=== PATIENT | female | born 1980 | race Two or more races ===

== ENCOUNTER 2023-07-28 08:19 | Emergency (ER) | payer OTHER ==
[~2023-07-28] VITALS: Ht 154.9 cm; Wt 113.4 kg
[~2023-07-28 08:19] MED LIST: AVALIDE 150-12.1 TA1 PO; KETO10TA2 PO; ORPH100T PO; ULTRACET PO
== END 2023-07-28 09:50 | disposition home or self-care (01) ==
LOC: ER 08:19
DX: N76.4 Abscess of vulva (principal)

== ENCOUNTER 2025-05-30 07:41 | Outpatient (CLI) | payer OTHER | END 2025-05-30 07:42 | disposition home or self-care (01) | LOC: SONOGRAMA 07:41 | PROVIDERS: ATTEND Pathology Anatomic Pathology & Clinical Pathology | DX: D34 Benign neoplasm of thyroid gland (principal); E07.89 Other specified disorders of thyroid; E04.2 Nontoxic multinodular goiter ==

== ENCOUNTER 2025-06-01 08:25 | Outpatient (CLI) | payer OTHER | END 2025-06-01 08:37 | disposition home or self-care (01) | LOC: LAB 08:25 | PROVIDERS: ATTEND Internal Medicine Hematology & Oncology | DX: C73 Malignant neoplasm of thyroid gland (principal); D75.839 Thrombocytosis, unspecified; D50.8 Other iron deficiency anemias; I10 Essential (primary) hypertension; E11.9 Type 2 diabetes mellitus without complications; E04.2 Nontoxic multinodular goiter ==